=== PATIENT | male | born 2000 | race Caucasian/White ===

== ENCOUNTER 2021-11-23 18:41 | Emergency (ER) | payer OTHER, BC ==
[2021-11-23] MEDS ORDERED: Acetaminophen/HYDROcodone 325-5 MG Tab PO ONE (19:29)
== END 2021-11-23 21:51 | disposition home or self-care (01) ==
LOC: JD.ED 18:41
DX: S52.122A Displaced fracture of head of left radius, initial encounter for closed fracture (principal); S50.312A Abrasion of left elbow, initial encounter; S80.211A Abrasion, right knee, initial encounter; Z28.310 Unvaccinated for COVID-19; V19.9XXA Pedal cyclist (driver) (passenger) injured in unspecified traffic accident, initial encounter
CPT/HCPCS: 29505; 73080; 73590; 73610; 99283; A9270; 99282